=== PATIENT | female | born 1955 | race Caucasian/White ===

== ENCOUNTER 2020-09-21 10:11 | Inpatient (IN) ==
--- NOTE | 2020-09-21 10:36 | ERNOTE ---
Hip Pain HPI - Narrative Date of Service: 09/21/20 Narrative: Patient is a 62 to 65 years old female who presented complaining of right hip pain. Patient is wheelchair-bound for the last 4 years, and last evening at 930 she tried to sweep off cerea; from the floor and lost her balance and fell off her wheelchair and landed on her right hip. She use her phone and called her niece who came and helped her to the couch. Patient slept on the couch and has not been able to move by herself of it so this morning she called 911 to pick her up. She reports pain in the right hip with any movement. On arrival EMS said that she was saturating at 86 to 88% on room air so they put her on 2 L of oxygen. Patient reports she does not normally use oxygen. She is a smoker - General Time Seen by Provider: 09/21/20 10:24 Source: patient Exam Limitations: no limitations - History of Present Illness Timing/Duration: constant, yesterday Severity: moderate, severe Hip Pain Location: hip (R) Method of Injury/Prior Injury: fell Modifying Factors - (Improves): Reports: pain medication Modifying Factors - (Worsens): Reports: movement - Immun/Allergies/Home Medications Allergies/Adverse Reactions: Allergies Allergy/AdvReac Type Severity Reaction Status Date / Time No Known Allergies Allergy Unverified 09/21/20 10:26 Home Medications: Ambulatory Orders Medication Instructions Recorded Albuterol Sulfate [Ventolin Hfa] 1 puff INHALATION Q4H PRN 09/21/20 Atorvastatin Calcium [Lipitor] 80 mg PO HS 09/21/20 Enalapril Maleate 5 mg PO DAILY 09/21/20 Hydroxychloroquine Sulfate 200 mg PO DAILY 09/21/20 [Plaquenil] Naloxone HCl [Narcan] 4 mg NS ONCE PRN 09/21/20 Pregabalin [Lyrica] 150 mg PO BID 09/21/20 oxyCODONE HCL/ACETAMINOPHEN 2 ea PO TID PRN 09/21/20 [Percocet 10-325 mg Tablet] Pain Exam - Physical Exam General Appearance: Present: moderate distress Eyes, Ears, Nose, Throat Exam: Present: normal ENT inspection Neck Exam: Present: non-tender Cardiovascular/Respiratory: Present: regular rate, rhythm Gastrointestinal/Abdominal: Present: normal bowel sounds Back Exam: Present: normal inspection, no CVA tenderness Extremity Exam: Present: bony-point tenderness, pain with movement, other - right hip Neurologic: Present: interventional neuroradiologist II-XII nml as tested Skin Exam: Present: normal color ED Progress - PROGRESS/REASSESSMENT Condition: Improved Progress Note-Subjective: 09/21/20 11:10 - discussed case with Dr Mortensen, ortho, he will see patient on the floor, asked to admit to medicine 09/21/2020 11:[address] Gonzales 11:45 - Discussed case with Dr Gonzales, she accepted admission. - VITAL SIGNS Patient's Vital Signs:: I have reviewed the patient's vital signs. - RESULTS AND ORDERS Patient's Lab Results:: I have reviewed the patient's lab results. - X-Ray X-Ray #1 X-Ray Comments: NAME: MARA IVERSON : 1955 MR #: [id number] CC: Grace Arriaga MD; Thea Nelson MDLOC: ER ADM DATE: DIS DATE: X-RAY REPORT ~[id number] RAD/Chest Single View *~ Exam Date: 09/21/2020 10:54 Ordering Physician: Grace Arriaga MD History: Fall. Right hip pain. Right hip fracture. Technique: Single AP view of the chest obtained. 2 images utilized. Comparison: None. Findings: Heart size and vascularity appear within normal limits. There are coronary artery vascular stents. There are changes of underlying emphysema. There are no focal infiltrates or effusions identified on this single view. There are postsurgical changes lower visualized cervical spine. There are degenerative changes in the thoracic spine. IMPRESSION: EMPHYSEMA. NO ACUTE CARDIOPULMONARY DISEASE OTHERWISE IDENTIFIED. Electronically signed by Naseem Edmond M.D.. Naseem Edmond MD Dict: 09/21/20 1130 Typed: 09/21/20 1130/ 09/21/20 1131 X-Ray #2 X-Ray Comments: NAME: MARA IVERSON : 1955 MR #: [id number] CC: Grace Arriaga MD; Thea Nelson MDLOC: ER ADM DATE: DIS DATE: X-RAY REPORT ~[id number] RAD/Hip & Pelvis 2-3 Views RT *~ Exam Date: 09/21/2020 10:54 Ordering Physician: Grace Arriaga MD History: Fall. Pain post injury. Technique: 2 views of the right hip obtained. Single AP view of the pelvis obtained. Comparison: None. Findings: Both hips are normally located. There are postoperative changes in the pelvis. There are degenerative changes of both hips. There is a nondisplaced intertrochanteric fracture of the right hip. This may be incomplete. This is only well seen on the lateral view. No other fractures identified. IMPRESSION: NONDISPLACED RIGHT HIP INTERTROCHANTERIC FRACTURE. Electronically signed by Naseem Edmond M.D.. Naseem Edmond MD Dict: 09/21/20 1128 Typed: 09/21/20 1128/ 09/21/20 1130 Departure - Departure Clinical Impression: Intertrochanteric fracture of right femur, Hypoxia, Renal failure Disposition: Short Term Hospital Inpatient Condition: Fair
[2020-09-21 11:45] LABS: Hematocrit 47.7 % (37.0-47.0); Hemoglobin 15.2 gm/dL (12.5-16.0); Mean Cell Volume 95.4 fl (78-100); Mean Corpuscular Hemoglobin 30.4 pg (27-31); Mean Corpuscular Hgb Conc 31.9 g/dl (32-36); Mean Platelet Volume 10.4 fl (8-12.5); Neutrophil # 7.7 K/mm3 (1.3-6.0); Neutrophil % 83.3 % (42-75.0); Platelet Count 161 K/mm3 (150-450); Red Cell Distribution Width 16.5 % (11.5-14.0); White Blood Count 9.2 K/mm3 (4.0-10.5)
[2020-09-21 11:58] LABS: Albumin * 3.6 gm/dl (3.4-5.0); Anion Gap 14.4 mmol/L (6.8-13.8); BUN/Creatinine Ratio 24.8 (9.0-21.6); Bilirubin, Total 0.7 mg/dL (0.0-1.1); Carbon Dioxide 27.1 mmol/L (24-32.6); Potassium 4.5 mmol/L (3.4-4.6); Total Protein 7.4 gm/dL (6.2-8.2)
[2020-09-21 12:02] LABS: Urine Bilirubin Negative (NEGATIVE); Urine Blood Negative /ul (NEGATIVE); Urine Ketone Negative (NEGATIVE); Urine Nitrite Negative (NEGATIVE); Urine Protein Negative (NEGATIVE); Urine Specific Gravity 1.015 SP.GR. (1.005-1.010); Urine Urobilinogen Normal (NORMAL)
[2020-09-21 12:14] LABS: Urine Appearance Clear (CLEAR); Urine Bacteria None Seen; Urine Color Yellow; Urine RBC None Seen /hpf (0-5); Urine WBC None Seen /hpf (0-5)
--- NOTE | 2020-09-21 12:39 | HP ---
Chief Complaint - Chief Complaint Date of Service: 09/21/20 Time of Service: 12:15 Chief Complaint: Right hip pain History of Present Illness: 65-year-old female with a past medical history of COPD, hypertension, osteoporosis, lupus presents from home status post fall with right hip pain. Hip x-ray is positive for nondisplaced right hip Intertrochanteric fracture. Her GFR is low at 40. She is tachypneic and tachycardic with hypoxia in the high 80s and is requiring 2 to 4 L oxygen supplementation via nasal cannula. She received a dose of fentanyl on transit to the hospital. During my exam she is lethargic and minimally responsive to verbal questioning, she is more responsive to tactile stimuli. She denies pain or shortness of breath. Orthopedics has been consulted and she is being admitted for right hip fracture. Surgical history: Noncontributory Medical History (Last Updated 09/21/20 @ 17:04 by Marie Gonzales MD) COPD (chronic obstructive pulmonary disease) Family history non-contributory Hypertension Lupus Medical history non-contributory Osteoporosis Weakness Family History: Family History (Last Updated 09/21/20 @ 10:27 by Morena George RN) Other No pertinent family history No pertinent past surgical history Social History: (Last Reviewed 09/21/20 @ 10:27 by Mroena George RN) Tobacco: Smoking Status: Current every day smoker tobacco type: cigarettes Smoking cigarettes per day: 10 Alcohol: alcohol intake: never Substance Use: substance use type: does not use Review Of Systems (GEN) - Review of Systems Generalized/Overall Review: Absent: Fever Respiratory: Absent: Shortness of Breath Cardiac: Absent: Chest Pain Abdominal: Absent: Abdominal Pain Musculoskeletal: Present: Joint Pain - Right hip Misc: All systems neg except as marked Immunizations: IMMUNIZATION HX Immunizations Up to Date Yes History of Influenza Vaccine No Hx Pneumococcal Vaccination No Allergies/Adverse Reactions: Allergies Allergy/AdvReac Type Severity Reaction Status Date / Time No Known Allergies Allergy Unverified 09/21/20 10:26 Home Medications: HOME MEDICATIONS Albuterol Sulfate [Ventolin Hfa] 1 puff INHALATION Q4H PRN 09/21/20 [Last Taken Unknown] Atorvastatin Calcium [Lipitor] 80 mg PO HS 09/21/20 [Last Taken Unknown] Enalapril Maleate 5 mg PO DAILY 09/21/20 [Last Taken Unknown] Hydroxychloroquine Sulfate [Plaquenil] 200 mg PO DAILY 09/21/20 [Last Taken Unknown] Naloxone HCl [Narcan] 4 mg NS ONCE PRN 09/21/20 [Last Taken Unknown] Pregabalin [Lyrica] 150 mg PO BID 09/21/20 [Last Taken Unknown] oxyCODONE HCL/ACETAMINOPHEN [Percocet 10-325 mg Tablet] 2 ea PO TID PRN 09/21/20 [Last Taken Unknown] Exam - Exam Vital Signs: Vital Signs - Last Taken Temp 36.8 C 09/21/20 10:14 Pulse 105 H 09/21/20 11:58 Resp 25 H 09/21/20 11:58 BP 137/75 09/21/20 11:58 Pulse Ox 90 L 09/21/20 11:58 Constitutional: Present: No distress, Elderly, Looks Older than stated age ENT Exam: Present: hearing grossly normal, dry mucous membranes Eye Exam: bilateral eye: normal inspection, PERRL Neck: Present: non-tender, supple. Absent: lymphadenopathy (R), lymphadenopathy (L) Respiratory: Present: no accessory muscle use, rhonchi - Throughout all lung heart, No wheezing. Absent: crackles Cardiovascular/Chest: Present: normal peripheral pulses, no edema, no murmur, tachycardia Peripheral Pulses: dorsalis-pedis (R): 1+, dorsalis-pedis (L): 1+ Abdomen: Present: Normal bowel sounds, soft, nontender Extremity: Present: no pedal edema Skin Exam: Present: normal color, warm/dry Appearance: Present: appropriate appearance Eye contact: Present: cooperative Thoughts: Present: normal mood /affect Diagnostic Studies: Abnormal Lab Results 09/21/20 09/21/20 Range/Units 11:35 11:35 Hct 47.7 H (37.0-47.0) % MCHC 31.9 L (32-36) g/dl RDW 16.5 H (11.5-14.0) % Immature Gran # (Auto) 0.04 H (0.000-0.0310) K/mm3 Neutrophils % 83.3 H (42-75.0) % Lymphocytes % 9.8 L (20-51) % Neutrophils # 7.7 H (1.3-6.0) K/mm3 Lymphocytes # 0.90 L (1.5-3.5) k/mm3 Anion Gap 14.4 H (6.8-13.8) mmol/L BUN 35 H (3-23) mg/dL Creatinine 1.41 H (0.4-1.4) mg/dL Est GFR (Non-Af Amer) 40 L (60-130) mL/min BUN/Creatinine Ratio 24.8 H (9.0-21.6) Laboratory Results WBC 9.2 K/mm3 (4.0-10.5) 09/21/20 11:35 RBC 5.00 M/mm3 (4.2-5.4) 09/21/20 11:35 Hgb 15.2 gm/dL (12.5-16.0) 09/21/20 11:35 Hct 47.7 % (37.0-47.0) H 09/21/20 11:35 MCV 95.4 fl (78-100) 09/21/20 11:35 MCH 30.4 pg (27-31) 09/21/20 11:35 MCHC 31.9 g/dl (32-36) L 09/21/20 11:35 RDW 16.5 % (11.5-14.0) H 09/21/20 11:35 Plt Count 161 K/mm3 (150-450) 09/21/20 11:35 MPV 10.4 fl (8-12.5) 09/21/20 11:35 Immature Gran % (Auto) 0.40 % (0.001-0.429) 09/21/20 11:35 Immature Gran # (Auto) 0.04 K/mm3 (0.000-0.0310) H 09/21/20 11:35 Neutrophils % 83.3 % (42-75.0) H 09/21/20 11:35 Lymphocytes % 9.8 % (20-51) L 09/21/20 11:35 Monocytes % 4.6 % (0.0-9) 09/21/20 11:35 Eosinophils % 1.7 % (0.0-3.0) 09/21/20 11:35 Basophils % 0.2 % (0.0-1.0) 09/21/20 11:35 Nucleated RBC % 0.0 k/mm3 (0-1) 09/21/20 11:35 Neutrophils # 7.7 K/mm3 (1.3-6.0) H 09/21/20 11:35 Lymphocytes # 0.90 k/mm3 (1.5-3.5) L 09/21/20 11:35 Monocytes # 0.4 k/mm3 (0.0-1.0) 09/21/20 11:35 Eosinophils # 0.2 k/mm3 (0.0-0.7) 09/21/20 11:35 Absolute Basophils 0.0 k/mm3 (0.0-0.1) 09/21/20 11:35 Sodium 142 mmol/L (132-142) 09/21/20 11:35 Plasma Sodium 142 mmol/L (130-142) 09/21/20 11:35 Potassium 4.5 mmol/L (3.4-4.6) 09/21/20 11:35 Chloride 105 mmol/L (97-106) 09/21/20 11:35 Carbon Dioxide 27.1 mmol/L (24-32.6) 09/21/20 11:35 Anion Gap 14.4 mmol/L (6.8-13.8) H 09/21/20 11:35 BUN 35 mg/dL (3-23) H 09/21/20 11:35 Creatinine 1.41 mg/dL (0.4-1.4) H 09/21/20 11:35 Est GFR (Non-Af Amer) 40 mL/min (60-130) L 09/21/20 11:35 BUN/Creatinine Ratio 24.8 (9.0-21.6) H 09/21/20 11:35 Random Glucose 87 mg/dL (70-110) 09/21/20 11:35 Lactic Acid, Venous 1.4 mmol/L (0.4-2.0) 09/21/20 11:35 Calcium 9.0 mg/dL (7.9-10.9) 09/21/20 11:35 Calcium Adj for Albumin 9.0 mg/dL (8.4-10.2) 09/21/20 11:35 Total Bilirubin 0.7 mg/dL (0.0-1.1) 09/21/20 11:35 AST 34 U/L (0-48) 09/21/20 11:35 ALT 22 U/L (19-67) 09/21/20 11:35 Alkaline Phosphatase 135 U/L (50-170) 09/21/20 11:35 Creatine Kinase 116 U/L (0-259) 09/21/20 11:35 Total Protein 7.4 gm/dL (6.2-8.2) 09/21/20 11:35 Albumin 3.6 gm/dl (3.4-5.0) 09/21/20 11:35 Urine Color Yellow 09/21/20 11:54 Urine Appearance Clear (CLEAR) 09/21/20 11:54 Urine pH 6.0 pH (5.0-7.0) 09/21/20 11:54 Ur Specific [place] 1.015 SP.GR. (1.005-1.010) 09/21/20 11:54 Urine Protein Negative mg/dL (NEGATIVE) 09/21/20 11:54 Urine Glucose (UA) Negative mg/dL (NEGATIVE) 09/21/20 11:54 Urine Ketones Negative mg/dL (NEGATIVE) 09/21/20 11:54 Urine Blood Negative /ul (NEGATIVE) 09/21/20 11:54 Urine Nitrate Negative (NEGATIVE) 09/21/20 11:54 Urine Bilirubin Negative mg/dl (NEGATIVE) 09/21/20 11:54 Urine Urobilinogen Normal EU/dl (NORMAL) 09/21/20 11:54 Ur Leukocyte Esterase Negative /ul (NEGATIVE) 09/21/20 11:54 Urine RBC None seen /hpf (0-5) 09/21/20 11:54 Urine WBC None seen /hpf (0-5) 09/21/20 11:54 Ur Epithelial Cells 0-5 /hpf (0-5) 09/21/20 11:54 Urine Bacteria None seen (NONE) 09/21/20 11:54 Urine Culture Comments No culture indicated 09/21/20 11:54 SARS-CoV-2 (PCR) Not detected (NotDetected) 09/21/20 11:18 Assessment/Plan - Narrative Narrative: 65-year-old female with a past medical history of COPD, hypertension, osteoporos is, lupus presents from home status post fall with right hip pain. Hip x-ray is positive for nondisplaced right hip Intertrochanteric fracture. Her GFR is low at 40. She is tachypneic and tachycardic with hypoxia in the high 80s and is requiring 2 to 4 L oxygen supplementation via nasal cannula. She received a dose of fentanyl on transit to the hospital. During my exam she is lethargic and minimally responsive to verbal questioning, she is more responsive to tactile stimuli. She denies pain or shortness of breath. Orthopedics has been consulted and she is being admitted for right hip fracture. She is medically cleared for surgery. Plan #1 pain management #2 follow-up orthopedics consult #3 oxygen supplementation as needed #4 resume home medications for comorbidities - Assessment/Plan (1) COPD (chronic obstructive pulmonary disease) Problem: Acute (2) Hypoxia Problem: Acute (3) Intertrochanteric fracture of right femur Problem: Acute (4) Lupus Problem: Acute (5) Hypertension Problem: Acute (6) CKD (chronic kidney disease) stage 3, GFR 30-59 ml/min Problem: Acute
[2020-09-21] MEDS: MORPHINE SULFATE 2 MG/ML DISP.SYRIN IV PRN ×2 (13:58→20:40)
[2020-09-21] MEDS: METOPROLOL TARTRATE 25 MG TABLET PO SCH ×2 (16:05→20:47)
--- NOTE | 2020-09-21 16:24 | CONS ---
[facility] - General Date of Service: 09/21/20 Narrative: Patient reports that she had a ground-level fall earlier today. She states that she is only up for transfers from bed to wheelchair. She reports that this fall she had severe right hip pain and was unable to put any pressure on her right leg. She was brought in the emergency department and evaluated. She was found to have a essentially nondisplaced intertrochanteric right hip fracture. She is complaining of no other injuries. Source: patient - History of Present Illness Timing/Duration: 4-6 hours Allergies/Adverse Reactions: Allergies No Known Allergies Allergy (Unverified 09/21/20 10:26) Home Medications: Home Medications Medication Instructions Recorded Last Taken Albuterol Sulfate [Ventolin Hfa] 1 puff INHALATION Q4H PRN 09/21/20 Unknown Atorvastatin Calcium [Lipitor] 80 mg PO HS 09/21/20 Unknown Enalapril Maleate 5 mg PO DAILY 09/21/20 Unknown Hydroxychloroquine Sulfate 200 mg PO DAILY 09/21/20 Unknown [Plaquenil] Naloxone HCl [Narcan] 4 mg NS ONCE PRN 09/21/20 Unknown Pregabalin [Lyrica] 150 mg PO BID 09/21/20 Unknown oxyCODONE HCL/ACETAMINOPHEN 2 ea PO TID PRN 09/21/20 Unknown [Percocet 10-325 mg Tablet] Medications - Medications Current Medications: Current Medications Metoprolol Tartrate (Lopressor) 25 mg PO BID MICHAEL Stop: 10/21/20 16:01 Last Admin: 09/21/20 16:05 Dose: 25 mg Documented by: Morphine Sulfate (Morphine Sulfate) 1 mg IV Q2H PRN PRN Reason: Pain Stop: 10/21/20 13:50 Last Admin: 09/21/20 13:58 Dose: 1 mg Documented by: Physical Examination - Exam Narrative: Patient is lying in bed. She is a frail 65-year-old female. She does respond to questions appropriately. She has local tenderness with palpation in the right inguinal area. She is lying with her knees flexed and on her right side. Right leg logroll does produce right inguinal pain. She is not complaining the pain in her right knee or lower leg. X-rays reviewed show an essentially nondisplaced right intertrochanteric hip fracture. Vital Signs: Vital Signs - Last Taken Temp 37.5 C 09/21/20 13:05 Pulse 122 H 09/21/20 16:05 Resp 18 09/21/20 13:05 BP 130/72 09/21/20 16:05 Pulse Ox 99 09/21/20 13:05 O2 Oxygen Delivery Method Room Air - Results and Findings: Lab/Microbiology results last 24 hrs: Abnormal/Pending Laboratory Last 24 HRS 09/21/20 09/21/20 11:35 11:35 Hct 47.7 H MCHC 31.9 L RDW 16.5 H Immature Gran # (Auto) 0.04 H Neutrophils % 83.3 H Lymphocytes % 9.8 L Neutrophils # 7.7 H Lymphocytes # 0.90 L Anion Gap 14.4 H BUN 35 H Creatinine 1.41 H Est GFR (Non-Af Amer) 40 L BUN/Creatinine Ratio 24.8 H - Assessments/Findings (1) Intertrochanteric fracture of right femur Diagnosis(s): Mrs. Duran is a 65-year-old female with a essentially nondisplaced intertrochanteric right hip fracture. Recommendation is supple medullary internal fixation with InterTAN nail. Surgical risk discussed. We will have consents obtained. Pending medical evaluation preoperatively we plan to proceed with this tomorrow if there are no contraindications. Patient be n.p.o. at midnight tonight. Problem: Acute
[2020-09-21] MEDS ORDERED: ceFAZolin SODIUM 1 GM in DEXTROSE 5 % IN WATER 50 ML IV PRN ×2 (16:25)
[2020-09-21] MEDS: ALBUTEROL SULFATE 2.5 MG/0.5 ML VIAL.NEB IH PRN (19:04)
[2020-09-21] MEDS: ROSUVASTATIN CALCIUM 20 MG TABLET PO SCH (20:44)
[2020-09-21] MEDS: PREGABALIN 75 MG CAPSULE PO SCH (20:50)
[2020-09-22] MEDS: ALBUTEROL SULFATE 2.5 MG/0.5 ML VIAL.NEB IH PRN ×3 (01:49→18:18)
[2020-09-22] MEDS ORDERED: FUROSEMIDE 10 MG/ML VIAL IV ONE (03:08)
[2020-09-22] MEDS: MORPHINE SULFATE 2 MG/ML DISP.SYRIN IV PRN ×2 (03:28→11:18)
[2020-09-22 06:40] LABS: Hematocrit 47.4 % (37.0-47.0); Hemoglobin 14.8 gm/dL (12.5-16.0); Mean Cell Volume 95.2 fl (78-100); Mean Corpuscular Hemoglobin 29.7 pg (27-31); Mean Corpuscular Hgb Conc 31.2 g/dl (32-36); Mean Platelet Volume 10.6 fl (8-12.5); Neutrophil # 11.4 K/mm3 (1.3-6.0); Neutrophil % 82.2 % (42-75.0); Platelet Count 188 K/mm3 (150-450); Red Blood Count 4.98 M/mm3 (4.2-5.4); Red Cell Distribution Width 16.5 % (11.5-14.0); White Blood Count 13.8 K/mm3 (4.0-10.5)
[2020-09-22 06:51] LABS: Albumin * 3.3 gm/dl (3.4-5.0); Anion Gap 14.8 mmol/L (6.8-13.8); BUN/Creatinine Ratio 27.5 (9.0-21.6); Ca. Corrected For Albumin 9.2 mg/dL (8.4-10.2); Potassium 3.8 mmol/L (3.4-4.6); Total Protein 7.3 gm/dL (6.2-8.2)
--- NOTE | 2020-09-22 09:00 | ANES ---
Anesthesia Pre Procedure Eval Vitals/Labs: Last Vital Signs Temp 36.8 C 09/22/20 07:06 Pulse 104 H 09/22/20 07:06 Resp 15 09/22/20 07:06 BP 108/60 09/22/20 07:06 Pulse Ox 96 09/22/20 07:06 HOME MEDICATIONS Albuterol Sulfate [Ventolin Hfa] 1 puff INHALATION Q4H PRN 09/21/20 [Last Taken Unknown] Atorvastatin Calcium [Lipitor] 80 mg PO HS 09/21/20 [Last Taken Unknown] Enalapril Maleate 5 mg PO DAILY 09/21/20 [Last Taken Unknown] Hydroxychloroquine Sulfate [Plaquenil] 200 mg PO DAILY 09/21/20 [Last Taken Unknown] Naloxone HCl [Narcan] 4 mg NS ONCE PRN 09/21/20 [Last Taken Unknown] Pregabalin [Lyrica] 150 mg PO BID 09/21/20 [Last Taken Unknown] oxyCODONE HCL/ACETAMINOPHEN [Percocet 10-325 mg Tablet] 2 ea PO TID PRN 09/21/20 [Last Taken Unknown] Allergies/Adverse Reactions: Allergies Allergy/AdvReac Type Severity Reaction Status Date / Time No Known Allergies Allergy Unverified 09/21/20 10:26 - Planned Procedure Planned Procedure: R INTER NON DISPLACED HIP FRACTURE Medication List Reviewed:: Yes Allergies Verified: Yes Medical History (Last Reviewed 09/22/20 @ 08:59 by Naseem Beckham CRNA) COPD (chronic obstructive pulmonary disease) Family history non-contributory Hypertension Lupus Medical history non-contributory Osteoporosis Weakness Family History (Last Reviewed 09/22/20 @ 08:59 by Naseem Beckham CRNA) Other No pertinent family history No pertinent past surgical history - Family Anesthesia History Family History:: no untoward family reactions to anesthesia - Airway/Neck/Teeth Denture Type: Full upper, Full lower Neck Exam: limited range of motion Mallampatti Score: 2 Thyromental (T-M) distance: > 6 cm Mandibulo Hyoid distance: > 3 cm - Respiratory Respiratory History: COPD Respiratory Physical: decreased breath sounds Smoking Status: Current every day smoker Discussed smoking cessation including day of surgery: Yes Sleep Apnea currently treated: No Sleep Apnea by current assessment: No - Cardiovascular Cardiac History: hypertension, PVD Tolerate Activity: Poor Heart Sounds: S1 & S2, Regular - Gastrointestinal NPO since: mn - Anesthesia Assessment and Plan ASA Class: PS, III Anesthesia Type Plan: Spinal Planned difficult intubation/equipment available: No
[2020-09-22] MEDS: METOPROLOL TARTRATE 25 MG TABLET PO SCH ×2 (09:30→20:37)
[2020-09-22] MEDS ORDERED: ALBUTEROL SULFATE/IPRATROPIUM 3 ML NEBU IH SCH (09:45)
--- NOTE | 2020-09-22 11:49 | PREOP NOTE ---
Preoperative Progress Note - Preoperative Changes Changes to Preop Condition?: No Changes - Patient medical preop assessment done, plan IM fixation of fracture
--- NOTE | 2020-09-22 11:53 | PN ---
Subjective - Date and Time Seen Date: 09/22/20 Time: 09:34 Subjective Narrative: She denies chest pain, shortness of breath above her baseline, dizziness, or palpitations. Objective - Review of Systems Generalized/Overall Review: Denies: Fever Respiratory: Reports: Shortness of Breath. Denies: Cough Cardiac: Denies: Chest Pain Abdominal: Denies: Abdominal Pain Misc: All systems neg except as marked - Vitals Vitals: Last Vital Signs Temp 36.5 C 09/22/20 10:18 Pulse 91 09/22/20 10:18 Resp 24 H 09/22/20 10:18 BP 110/73 09/22/20 10:18 Pulse Ox 91 L 09/22/20 10:18 - Abnormal Lab Findings Abnormal Lab Findings: Abnormal Lab Results 09/21/20 09/22/20 09/22/20 Range/Units 11:35 06:32 06:32 WBC 13.8 H D (4.0-10.5) K/mm3 Hct 47.4 H (37.0-47.0) % MCHC 31.2 L (32-36) g/dl RDW 16.5 H (11.5-14.0) % Immature Gran % (Auto) 0.70 H (0.001-0.429) % Immature Gran # (Auto) 0.09 H (0.000-0.0310) K/mm3 Neutrophils % 82.2 H (42-75.0) % Lymphocytes % 8.6 L (20-51) % Neutrophils # 11.4 H (1.3-6.0) K/mm3 Lymphocytes # 1.19 L (1.5-3.5) k/mm3 Monocytes # 1.1 H (0.0-1.0) k/mm3 Anion Gap 14.4 H 14.8 H (6.8-13.8) mmol/L BUN 35 H 33 H (3-23) mg/dL Creatinine 1.41 H (0.4-1.4) mg/dL Est GFR (Non-Af Amer) 40 L 48 L (60-130) mL/min BUN/Creatinine Ratio 24.8 H 27.5 H (9.0-21.6) Albumin 3.3 L (3.4-5.0) gm/dl - Exam Constitutional: Present: Alert, Cooperative, No distress, Looks Older than stated age ENT Exam: Present: hearing grossly normal Neck: Present: non-tender, supple. Absent: lymphadenopathy (R), lymphadenopathy (L) Respiratory: Present: no respiratory distress, no accessory muscle use, rhonchi, No wheezing - Throughout all lung heart. Absent: crackles Cardiovascular/Chest: Present: regular rate, rhythm, no edema, no murmur Abdomen: Present: Normal bowel sounds, soft, nontender Extremity: Present: no pedal edema Skin Exam: Present: normal color, warm/dry Neurologic: Present: alert, normal mood/affect Appearance: Present: appropriate appearance, appropriate insight Eye contact: Present: cooperative Thoughts: Present: normal thought pattern, normal mood /affect Cauti Physician Documentation - Urinary Catheter Management Urethral ([place]) Date of Insertion: 09/21/20 Time of Insertion: 11:54 Assessment/Plan Plan Narrative: 65-year-old female with a past medical history of COPD, hypertension, osteoporosis, lupus presents from home status post fall with right hip pain. Hip x-ray is positive for nondisplaced right hip Intertrochanteric fracture. Her GFR is low at 40. She is tachypneic and tachycardic with hypoxia in the high 80s and is requiring 2 to 4 L oxygen supplementation via nasal cannula. She received a dose of fentanyl on transit to the hospital. During my exam she is lethargic and minimally responsive to verbal questioning, she is more responsive to tactile stimuli. She denies pain or shortness of breath. Orthopedics has been consulted and she is being admitted for right hip fracture. Her oxygen saturation dropped overnight and she was started on 4 L via oxy-mask. Repeat chest x-ray did not show any significant changes. She is not an optimal surgical candidate due to her COPD. However, in light of her hip fracture I will clear her medically for the procedure. She denies chest pain, palpitations, dizziness or shortness of breath above her baseline. I believe her COPD is at her baseline. Plan #1 pain management #2 she is scheduled to go to the operating room today #3 oxygen supplementation as needed #4 resume home medications for comorbidities - Problems/Diagnosis (1) COPD (chronic obstructive pulmonary disease) Problem: Acute (2) Hypoxia Problem: Acute (3) Intertrochanteric fracture of right femur Problem: Acute (4) Lupus Problem: Acute (5) Hypertension Problem: Acute (6) CKD (chronic kidney disease) stage 3, GFR 30-59 ml/min Problem: Acute
[2020-09-22] MEDS ORDERED: MIDAZOLAM HCL/PF 5 MG/ML VIAL ONE (12:06)
[2020-09-22] MEDS ORDERED: PROPOFOL VIAL IV ONE (12:06)
[2020-09-22] MEDS ORDERED: BUPIVACAINE HCL/PF 10 ML VIAL ONE (12:06)
[2020-09-22] MEDS ORDERED: LIDOCAINE HCL 20 ML VIAL ONE (12:06)
[2020-09-22] MEDS ORDERED: NORMAL SALINE 20 ML VIAL ONE (12:07)
--- NOTE | 2020-09-22 13:20 | OR ---
Operative Report - Dictated Report Narrative: Date: 09/22/2020 Surgeon: Demond Womack M.D. Occ Med Physician: Carlos Mortensen PA-C (provided an essential set of skilled educated handset assisted with transfer, positioning, prepping, draping, placement of instruments, insertion of implants, irrigation, closure wounds, and placement of dressings all which could not be performed by the available surgical crew) Preoperative diagnosis: Right closed intertrochanteric femur fracture Postoperative diagnosis: Right closed intertrochanteric femur fracture Operations and procedures: 1. Closed reduction, cephalo-medullary fixation right intertrochanteric femur fracture 2. Intraoperative interpretation of radiographs Anesthesia: Spinal plus general Specimens: None Estimated blood loss: 25 milliliters Retained implants: [employer] Trigen InterTAN 130 degree size 10 mm by 18 centimeter nail with 90 millimeter lag screw and 85 millimeter compression screw, with distal locking screw Complications: None Indications for procedure: Mrs. Duran is a 65-year-old female who injured the right leg after ground- level fall. They were admitted to the hospital after being evaluated in the emergency department. Once the medical provider felt that they were stable for surgical treatment, the risks and benefits alternatives were discussed. The risks of , blood clots, bleeding, infection, nerve/tendon/blood vessel injury, malunion, nonunion, failure of implants, painful implants, arthrosis, and need for additional procedures were discussed. The extremity was marked and consent was obtained on the floor. Procedure: After marking the operative extremity on the floor, the patient was taken to the operating room. A timeout was performed. IV antibiotics consisting of Ancef were administered. A spinal followed by general anesthetic was induced by anesthesia, and the patient was then placed onto a fracture table with a well- padded perineal post. The nonoperative leg was placed in a well-padded traction boot in slight extension without any traction with an SCD on the leg. The operative leg was placed in a well-padded traction boot. Longitudinal traction, internal rotation, and flexion were utilized in order to reduce the fracture. Preliminary images were attained utilizing C-arm in both the AP and lateral views. This confirmed that we had obtained adequate visualization of the fracture as well as reduction. Next the hip was then prepped and draped in a standard sterile fashion. Next the guidewire was placed percutaneously proximal to the greater trochanter to anahy a starting point at the tip of the greater trochanter centered on the lateral view. This was passed down to the level below the lesser trochanter. A scalpel was utilized in order to dissect down to the greater trochanter in order to place the soft tissue protector down to bone. The entry drill was then placed down the proximal femur to the level of the lesser trochanter. The proper size nail was then selected and impacted into place. The outrigger was utilized in order to confirm the appropriate depth of the nail. Using the alignment device on the outrigger, an incision was made over the lateral femur. Sharp dissection was carried through the iliotibial band down to the proximal femur. The guidewire was placed into the femoral head in a center- center position on AP and lateral views. The tip-apex distance of less than 25 mm combined was obtained. Once we felt that we had placed a guidewire in the appropriate position, it was measured. Next the compression screw site was drilled through the lateral femoral cortex. This was then drilled down to the appropriate depth, again confirming that we are within the confines the bone. The derotational bar was then placed and the lag screw was drilled. The lag screw was then secured in place seating fully ensuring that we were within the confines of the bone. The compression screw was then inserted allowing for compression while releasing the traction on the leg. Using C-arm this was visualized to allow for compression across the fracture site. Once is felt that we had adequately stabilized the intertrochanteric fracture, the distal interlocking screw was placed in a dynamic position. It was confirmed to be the appropriate length and within the nail on both AP and lateral views. The nail was secured allowing for controlled compression and the outrigger was removed. The wounds were then thoroughly irrigated. Final images were obtained . The hip was placed through range of motion and showed no crepitance. The deep fascia was closed with 0 Vicryl, the subcutaneous tissue with 3-0 Vicryl, and the skin was closed with ludmila. Sterile dressings of Xeroform, 4 x 4, and tape were applied. All sponge, sharp, and instrument counts were correct prior to closing the wounds. The patient was then awoken and transferred to the postanesthesia care unit in stable condition.
[2020-09-22] MEDS ORDERED: NEOSTIGMINE METHYLSULFATE 1 MG/ML VIAL ONE (14:19)
[2020-09-22] MEDS ORDERED: GLYCOPYRROLATE 0.2 MG/ML VIAL ONE (14:20)
[2020-09-22] MEDS: ALBUTEROL SULFATE/IPRATROPIUM 3 ML NEBU IH SCH ×2 (15:05→18:18)
--- NOTE | 2020-09-22 15:08 | ANES ---
Post Anesthesia Discharge - Transfer of Care Transfer of Care handoff given to nurse: Yes - Anesthesia Post Op Note Anesthesia Post Op Note: Pt. left intubated postop to assist with ventilation. Planned transfer. Spoke with DR. Ling in [place]. He requested that we attempt extubation. Dr. Gonzales made aware. Pt. extubated with Resp rate of 22 and tidal volumes ranging from 250-300. Placed on 10L per face mask.
--- NOTE | 2020-09-22 15:09 | ANES ---
Post Anesthesia Assessment - Vital Signs Vitals: Last Vital Signs Temp 36.6 C 09/22/20 13:30 Pulse 87 09/22/20 14:48 Resp 16 09/22/20 14:48 BP 115/64 09/22/20 14:48 Pulse Ox 100 09/22/20 14:48 Airway Patency: Normal - Mental Status Level Of Consciousness: Drowsy - Pain Level Pain Score: 0 - N/V Assessment Nausea/Vomiting Presence: None Dehydration:: No
[2020-09-22] MEDS: ENALAPRIL MALEATE 5 MG TABLET PO SCH (15:47)
[2020-09-22] MEDS: HYDROXYCHLOROQUINE SULFATE 200 MG TABLET PO SCH (15:47)
[2020-09-22] MEDS: PREGABALIN 75 MG CAPSULE PO SCH ×2 (15:47→20:35)
[2020-09-22] MEDS: ceFAZolin SODIUM 1 GM in DEXTROSE 5 % IN WATER 100 ML IV SCH ×4 (17:45→23:22)
[2020-09-22] MEDS: NICOTINE 14 MG PATC TD SCH (17:45)
[2020-09-22] MEDS: oxyCODONE HCL/ACETAMINOPHEN 1 TAB TABLET PO PRN (19:03)
[2020-09-22] MEDS: ROSUVASTATIN CALCIUM 20 MG TABLET PO SCH (20:35)
[2020-09-23] MEDS: ALBUTEROL SULFATE/IPRATROPIUM 3 ML NEBU IH SCH ×4 (00:10→18:35)
[2020-09-23] MEDS: oxyCODONE HCL/ACETAMINOPHEN 1 TAB TABLET PO PRN ×4 (02:47→19:15)
[2020-09-23] MEDS: ceFAZolin SODIUM 1 GM in DEXTROSE 5 % IN WATER 100 ML IV SCH ×2 (04:32)
[2020-09-23 06:32] LABS: Hematocrit 40.5 % (37.0-47.0); Mean Cell Volume 95.1 fl (78-100); Mean Corpuscular Hemoglobin 30.5 pg (27-31); Mean Corpuscular Hgb Conc 32.1 g/dl (32-36); Mean Platelet Volume 10.6 fl (8-12.5); Neutrophil # 7.6 K/mm3 (1.3-6.0); Neutrophil % 76.5 % (42-75.0); Platelet Count 146 K/mm3 (150-450); Red Blood Count 4.26 M/mm3 (4.2-5.4); Red Cell Distribution Width 16.4 % (11.5-14.0)
[2020-09-23 06:43] LABS: Anion Gap 11.9 mmol/L (6.8-13.8); BUN/Creatinine Ratio 25.7 (9.0-21.6); Calcium * 8.6 mg/dL (7.9-10.9); Carbon Dioxide 25.9 mmol/L (24-32.6); Estimated Creat Clear 40.6; Potassium 3.8 mmol/L (3.4-4.6)
[2020-09-23] MEDS: PREGABALIN 75 MG CAPSULE PO SCH ×2 (08:22→20:14)
[2020-09-23] MEDS: ENALAPRIL MALEATE 5 MG TABLET PO SCH (08:29)
[2020-09-23] MEDS: HYDROXYCHLOROQUINE SULFATE 200 MG TABLET PO SCH (08:30)
[2020-09-23] MEDS ORDERED: NORMAL SALINE 500 ML IV ONE (08:57)
[2020-09-23] MEDS ORDERED: NORMAL SALINE 500 ML IV PRN (09:06)
[2020-09-23] MEDS: METOPROLOL TARTRATE 25 MG TABLET PO SCH ×2 (09:11→20:15)
[2020-09-23] MEDS: RIVAROXABAN 20 MG TABLET PO SCH (11:01)
--- NOTE | 2020-09-23 11:08 | PN ---
Subjective - Date and Time Seen Date: 09/23/20 Time: 11:06 Subjective Narrative: Subjective: Reports no concerns. Was able to get to the chair with therapy. Pain is well-controlled. Voiding without any complications. Tolerating by mouth intake. Denies any nausea or vomiting. Denies calf pain. Slept well. Physical exam: Alert and oriented Right lower extremity: Palpable dorsalis pedis pulse. Sensation grossly intact to light touch. Dressings clean and dry. Able to flex and extend ankle and toes. No excessive drainage. Calf and thigh are soft and nontender. Assessment: Postop day 1 status post right hip cephalomedullary fixation. Plan: Continue with physical and occupational therapy weightbearing as tolerated. Continue with anticoagulation for 6 weeks. 24 hours postoperative prophylactic antibiotics. Pain control with goal to rely on oral medications. Continue bowel regimen. Will need 6 weeks with walker or assistive device to protect joint while ambulating during the recovery process. Okay to transfer at any point. I would like to see her back in 2 to 3 weeks. Keep the wound dry. Continue compression stocking on the surgical leg. Objective - Vitals Vitals: Last Vital Signs Temp 36.8 C 09/23/20 10:14 Pulse 105 H 09/23/20 10:14 Resp 20 09/23/20 10:14 BP 96/59 09/23/20 10:14 Pulse Ox 94 09/23/20 10:14 - Abnormal Lab Findings Abnormal Lab Findings: Abnormal Lab Results 09/23/20 09/23/20 Range/Units 06:20 06:20 RDW 16.4 H (11.5-14.0) % Plt Count 146 L (150-450) K/mm3 Immature Gran % (Auto) 0.60 H (0.001-0.429) % Immature Gran # (Auto) 0.06 H (0.000-0.0310) K/mm3 Neutrophils % 76.5 H (42-75.0) % Lymphocytes % 11.4 L (20-51) % Monocytes % 10.4 H (0.0-9) % Neutrophils # 7.6 H (1.3-6.0) K/mm3 Lymphocytes # 1.14 L (1.5-3.5) k/mm3 BUN 26 H (3-23) mg/dL Est GFR (Non-Af Amer) 59 L D (60-130) mL/min BUN/Creatinine Ratio 25.7 H (9.0-21.6) Random Glucose 140 H D (70-110) mg/dL Cauti Physician Documentation - Urinary Catheter Management Urethral (Torres) Date of Insertion: 09/21/20 Time of Insertion: 11:54 Assessment/Plan - Problems/Diagnosis (1) Intertrochanteric fracture of right femur Problem: Acute Qualifiers: Encounter type: subsequent encounter Fracture type: closed Fracture alignment: nondisplaced Fracture healing: with routine healing Qualified Code(s): S72.144D - Nondisplaced intertrochanteric fracture of right femur, subsequent encounter for closed fracture with routine healing
--- NOTE | 2020-09-23 12:20 | PN ---
Subjective - Date and Time Seen Date: 09/23/20 Time: 12:13 Subjective Narrative: My pain is controlled. Objective Objective Narrative: 65-year-old female status post right hip intertrochanteric fracture repair postop day #1 was evaluated at bedside and was found to be afebrile and in no acute distress. Patient reports adequate control of her pain at the moment and appears to be resting comfortable. She underwent a successful surgery yesterday and is recuperating without any major issues. Patient was evaluated by the orthopedic surgeon this morning who reports adequate recuperation but recommends continuing physical therapy, he also ordered for her to follow-up with him within the next 2 weeks. Patient has been undergoing postop PT and still has issues with her transfers and ambulation that needs to be addressed, discharge planning to her home with ongoing PT is underway. Postop labs demonstrate adequate hemoglobin levels and there were no concerning findings on this morning's results. We will reevaluate her tomorrow morning to see if she is ready to go. - Review of Systems Generalized/Overall Review: Reports: No Symptoms Reported EENTM: Reports: No Symptoms Reported Respiratory: Reports: No Symptoms Reported Cardiac: Reports: No Symptoms Reported Abdominal: Reports: No Symptoms Reported Genitourinary Symptoms: Reports: No Symptoms Reported Musculoskeletal Complaints: Reports: Joint Pain - Right hip fracture Neurological: Reports: No Symptoms Reported Skin: Reports: No Symptoms Reported Endocrine: Reports: No Symptoms Reported - Vitals Vitals: Last Vital Signs Temp 36.8 C 09/23/20 10:14 Pulse 105 H 09/23/20 10:14 Resp 20 09/23/20 10:14 BP 96/59 09/23/20 10:14 Pulse Ox 94 09/23/20 10:14 - Abnormal Lab Findings Abnormal Lab Findings: Abnormal Lab Results 09/23/20 09/23/20 Range/Units 06:20 06:20 RDW 16.4 H (11.5-14.0) % Plt Count 146 L (150-450) K/mm3 Immature Gran % (Auto) 0.60 H (0.001-0.429) % Immature Gran # (Auto) 0.06 H (0.000-0.0310) K/mm3 Neutrophils % 76.5 H (42-75.0) % Lymphocytes % 11.4 L (20-51) % Monocytes % 10.4 H (0.0-9) % Neutrophils # 7.6 H (1.3-6.0) K/mm3 Lymphocytes # 1.14 L (1.5-3.5) k/mm3 BUN 26 H (3-23) mg/dL Est GFR (Non-Af Amer) 59 L D (60-130) mL/min BUN/Creatinine Ratio 25.7 H (9.0-21.6) Random Glucose 140 H D (70-110) mg/dL - Exam Constitutional: Present: Alert, Oriented x3, Cooperative, Well developed, Well nourished, No distress, Elderly, Thin and frail ENT Exam: Present: normal ENT inspection, hearing grossly normal Neck: Present: non-tender, full range of motion, supple, normal inspection, trachea midline Breasts: Present: Exam deferred, Nontender Respiratory: Present: chest non-tender, lungs clear, normal breath sounds, no respiratory distress, no accessory muscle use Cardiovascular/Chest: Present: normal peripheral pulses, regular rate, rhythm, no chest tenderness, no edema, no gallop, no JVD, no murmur, no rub Abdomen: Present: Normal bowel sounds, soft, nontender, nondistended, no rebound tenderness, no hepatospenomegaly, no masses /Rectal: Present: Exam deferred Extremity: Present: no pedal edema, no calf tenderness, normal capillary refill, pelvis stable, other - Right hip covered by dry clean dressings, no evidence of bleeding Skin Exam: Present: normal color, warm/dry, no cyanosis Lymphatic: Present: no adenopathy Neurologic: Present: proofer apprentice II-XII nml as tested, no motor/sensory deficits, alert, normal mood/affect, oriented x 3 Appearance: Present: appropriate appearance, appropriate insight, neat, no memory impairment Eye contact: Present: cooperative, good eye contact, normal speech Thoughts: Present: normal thought pattern, no apparent hallucination Cauti Physician Documentation - Urinary Catheter Management Urethral (Torres) Date of Insertion: 09/21/20 Time of Insertion: 11:54 Assessment/Plan Plan Narrative: We will keep patient an additional day to continue physical therapy and for close monitoring. - Problems/Diagnosis (1) Intertrochanteric fracture of right femur Problem: Acute Qualifiers: Encounter type: subsequent encounter Fracture type: closed Fracture alignment: nondisplaced Fracture healing: with routine healing Qualified Code(s): S72.144D - Nondisplaced intertrochanteric fracture of right femur, subsequent encounter for closed fracture with routine healing (2) COPD (chronic obstructive pulmonary disease) Problem: Acute (3) Lupus Problem: Acute (4) CKD (chronic kidney disease) stage 3, GFR 30-59 ml/min Problem: Acute (5) Status post-operative repair of closed fracture of right hip Problem: Acute
[2020-09-23] MEDS: NICOTINE 14 MG PATC TD SCH (16:33)
[2020-09-23] MEDS ORDERED: TAMSULOSIN HCL 0.4 MG CAP.SR.24H PO ONE (20:04)
[2020-09-23] MEDS: ROSUVASTATIN CALCIUM 20 MG TABLET PO SCH (20:15)
[2020-09-24] MEDS: ALBUTEROL SULFATE/IPRATROPIUM 3 ML NEBU IH SCH ×4 (00:12→18:48)
[2020-09-24] MEDS: oxyCODONE HCL/ACETAMINOPHEN 1 TAB TABLET PO PRN ×4 (03:28→19:44)
[2020-09-24 06:22] LABS: Hematocrit 35.2 % (37.0-47.0); Hemoglobin 11.4 gm/dL (12.5-16.0); Mean Cell Volume 94.9 fl (78-100); Mean Corpuscular Hemoglobin 30.7 pg (27-31); Mean Corpuscular Hgb Conc 32.4 g/dl (32-36); Mean Platelet Volume 10.9 fl (8-12.5); Neutrophil # 5.2 K/mm3 (1.3-6.0); Platelet Count 140 K/mm3 (150-450); Red Blood Count 3.71 M/mm3 (4.2-5.4); Red Cell Distribution Width 16.3 % (11.5-14.0); White Blood Count 7.3 K/mm3 (4.0-10.5)
[2020-09-24 06:27] LABS: Anion Gap 10.5 mmol/L (6.8-13.8); BUN/Creatinine Ratio 20.4 (9.0-21.6); Calcium * 8.1 mg/dL (7.9-10.9); Carbon Dioxide 25.4 mmol/L (24-32.6); Estimated Creat Clear 41.9; Potassium 3.9 mmol/L (3.4-4.6)
[2020-09-24] MEDS: PREGABALIN 75 MG CAPSULE PO SCH ×2 (10:02→20:27)
[2020-09-24] MEDS: HYDROXYCHLOROQUINE SULFATE 200 MG TABLET PO SCH (10:03)
[2020-09-24] MEDS: RIVAROXABAN 20 MG TABLET PO SCH (10:03)
[2020-09-24] MEDS: METOPROLOL TARTRATE 25 MG TABLET PO SCH ×2 (10:06→20:27)
[2020-09-24] MEDS: ENALAPRIL MALEATE 5 MG TABLET PO SCH (10:07)
--- NOTE | 2020-09-24 11:14 | PN ---
Subjective - Date and Time Seen Date: 09/24/20 Time: 11:09 Subjective Narrative: My pain is controlled but I need more physical therapy. Objective Objective Narrative: 65-year-old female status post right hip intertrochanteric fracture repair postop day #2 was evaluated at bedside was found to be afebrile and in no acute distress. Patient is recuperating from her surgery without any issues. She is currently undergoing intrahospital physical therapy as ordered by the orthopedic surgeon. She reports adequate control of her pain but feels that she would benefit with additional intrahospital physical therapy to address her ambulation and weightbearing. Therefore we will keep the patient additional day to continue working with physical therapy. Her only issue at the moment is difficulty urinating which started since her Torres catheter was removed. The patient was cathed which released some of the urine but she continues to have difficulty. We will order Flomax to be given to her daily in order to assist with this and monitor to see if catheterizing her again is necessary. - Review of Systems Generalized/Overall Review: Reports: No Symptoms Reported EENTM: Reports: No Symptoms Reported Respiratory: Reports: No Symptoms Reported Cardiac: Reports: No Symptoms Reported Abdominal: Reports: No Symptoms Reported Genitourinary Symptoms: Reports: No Symptoms Reported Musculoskeletal Complaints: Reports: Joint Pain Neurological: Reports: No Symptoms Reported Skin: Reports: No Symptoms Reported Endocrine: Reports: No Symptoms Reported - Vitals Vitals: Last Vital Signs Temp 36.4 C 09/24/20 07:10 Pulse 105 H 09/24/20 10:06 Resp 16 09/24/20 07:10 BP 109/80 09/24/20 10:06 Pulse Ox 93 09/24/20 08:20 - Abnormal Lab Findings Abnormal Lab Findings: Abnormal Lab Results 09/24/20 09/24/20 Range/Units 06:10 06:10 RBC 3.71 L (4.2-5.4) M/mm3 Hgb 11.4 L (12.5-16.0) gm/dL Hct 35.2 L (37.0-47.0) % RDW 16.3 H (11.5-14.0) % Plt Count 140 L (150-450) K/mm3 Immature Gran % (Auto) 0.60 H (0.001-0.429) % Immature Gran # (Auto) 0.04 H (0.000-0.0310) K/mm3 Lymphocytes % 12.1 L (20-51) % Monocytes % 12.0 H (0.0-9) % Eosinophils % 3.2 H (0.0-3.0) % Lymphocytes # 0.88 L (1.5-3.5) k/mm3 Random Glucose 126 H (70-110) mg/dL - Exam Constitutional: Present: Alert, Oriented x3, Cooperative, Well developed, Well nourished, No distress ENT Exam: Present: normal ENT inspection, hearing grossly normal Neck: Present: non-tender, full range of motion, supple, normal inspection, trachea midline Breasts: Present: Exam deferred, Nontender Respiratory: Present: chest non-tender, lungs clear, normal breath sounds, no respiratory distress, no accessory muscle use Cardiovascular/Chest: Present: normal peripheral pulses, no chest tenderness, no edema, no gallop, no JVD, no murmur, no rub Abdomen: Present: Normal bowel sounds, soft, nontender, nondistended, no rebound tenderness, no hepatospenomegaly, no masses /Rectal: Present: Exam deferred Extremity: Present: normal range of motion, non-tender, normal inspection, no pedal edema, no calf tenderness, normal capillary refill, pelvis stable Skin Exam: Present: normal color, warm/dry, no cyanosis Lymphatic: Present: no adenopathy Neurologic: Present: gardener II-XII nml as tested, no motor/sensory deficits, alert, normal mood/affect, oriented x 3 Appearance: Present: appropriate appearance, appropriate insight, neat, no memory impairment Eye contact: Present: cooperative, good eye contact, normal speech Thoughts: Present: normal thought pattern Cauti Physician Documentation - Urinary Catheter Management Urethral (Torres) Urethral Indwelling: No Date of Insertion: 09/21/20 Time of Insertion: 11:54 Date of Removal: 09/23/20 Time of Removal: 13:02 Assessment/Plan Plan Narrative: We will administer Flomax to assist the patient's urination and continue to monitor closely. She will continue with physical therapy while here in the hospital but the plan is to discharge her with additional therapy at home. Patient is currently on Xarelto which is adequate coverage for her postop period, so we will not make any changes. - Problems/Diagnosis (1) Intertrochanteric fracture of right femur Problem: Acute Qualifiers: Encounter type: subsequent encounter Fracture type: closed Fracture alignment: nondisplaced Fracture healing: with routine healing Qualified Code(s): S72.144D - Nondisplaced intertrochanteric fracture of right femur, subsequent encounter for closed fracture with routine healing (2) COPD (chronic obstructive pulmonary disease) Problem: Chronic (3) Lupus Problem: Acute (4) CKD (chronic kidney disease) stage 3, GFR 30-59 ml/min Problem: Chronic (5) Status post-operative repair of closed fracture of right hip Problem: Acute
[2020-09-24] MEDS ORDERED: TAMSULOSIN HCL 0.4 MG CAP.SR.24H PO SCH (18:00)
[2020-09-24] MEDS: NICOTINE 14 MG PATC TD SCH (18:36)
[2020-09-24] MEDS: ROSUVASTATIN CALCIUM 20 MG TABLET PO SCH (20:26)
[2020-09-25] MEDS: ALBUTEROL SULFATE/IPRATROPIUM 3 ML NEBU IH SCH ×3 (00:29→13:35)
[2020-09-25] MEDS: oxyCODONE HCL/ACETAMINOPHEN 1 TAB TABLET PO PRN ×3 (01:27→13:36)
[2020-09-25] MEDS: ENALAPRIL MALEATE 5 MG TABLET PO SCH (09:04)
[2020-09-25] MEDS: PREGABALIN 75 MG CAPSULE PO SCH (09:06)
[2020-09-25] MEDS: RIVAROXABAN 20 MG TABLET PO SCH (09:06)
[2020-09-25] MEDS: METOPROLOL TARTRATE 25 MG TABLET PO SCH (09:07)
[2020-09-25] MEDS: HYDROXYCHLOROQUINE SULFATE 200 MG TABLET PO SCH (09:07)
--- NOTE | 2020-09-25 12:38 | DS ---
(1) COPD (chronic obstructive pulmonary disease) Problem: Chronic (2) Hypoxia Problem: Acute (3) Intertrochanteric fracture of right femur Problem: Acute Qualifiers: Encounter type: subsequent encounter Fracture type: closed Fracture alignment: nondisplaced Fracture healing: with routine healing Qualified Code(s): S72.144D - Nondisplaced intertrochanteric fracture of right femur, subsequent encounter for closed fracture with routine healing (4) Lupus Problem: Acute (5) Hypertension Problem: Acute (6) CKD (chronic kidney disease) stage 3, GFR 30-59 ml/min Problem: Chronic Hospital Course: 65-year-old female with a past medical history of COPD, hypertension, osteoporosis, lupus presents from home status post fall with right hip pain. Hip x-ray is positive for nondisplaced right hip Intertrochanteric fracture. Her GFR is low at 40. She is tachypneic and tachycardic with hypoxia in the high 80s and is requiring 2 to 4 L oxygen supplementation via nasal cannula. She received a dose of fentanyl on transit to the hospital. During my exam she is lethargic and minimally responsive to verbal questioning, she is more responsive to tactile stimuli. She denies pain or shortness of breath. Orthopedics has been consulted and she is being admitted for right hip fracture. Her oxygen saturation dropped overnight and she was started on 4 L via oxy-mask. Repeat chest x-ray did not show any significant changes. She is not an optimal surgical candidate due to her severe COPD. However, in light of her hip fracture I will clear her medically for the procedure. She denies chest pain, palpitations, dizziness or shortness of breath above her baseline. I believe her COPD is at her baseline. Patient underwent a right hip cephalomedullary fixation and required intubation during the procedure. Status post the procedure I received a call stating that anesthesia did not feel she would do well with extubation and they wanted the patient transferred to a higher level of care for management of the ventilator. We started working on transferring the patient and when I spoke with the car electronics installer at [facility] he would not accept the patient if we had not had a failed extubation. I transferred the car electronics installer to the anesthesia because the car electronics installer required more details and I had at the time. The car electronics installer had anesthesia extubate the patient and observe to see if she would need to be reintubated. The patient did okay on 10 L of oxygen. After monitoring her in the OR she was transferred to the inpatient and her oxygen requirements continue to decrease. She remained stable for the remainder of the hospitalization and is currently back at her baseline oxygenation which is 88% without oxygen supplementation. Kaila Druan is homebound due to her right hip fracture, she is status post right hip cephalomedullary fixation on September 22, 2020. The need for senior living is for wound care, monitoring of healing, diagnosis management education, medication management, surgery follow-up. The need for physical therapy is for strengthening, endurance, mobility issues, ADL teaching to be safe, range of motion, surgery follow-up. She will need to continue Xarelto for a total of 6 weeks until October 20, 2020. She will follow-up with orthopedics in the next 2 weeks Procedures Performed: see notes below List Procedures: right hip cephalomedullary fixation Results and Findings: Lab Pending Results 09/21/20 11:18: SARS-CoV-2 (PCR) Not detected 09/21/20 11:35: WBC 9.2, RBC 5.00, Hgb 15.2, Hct 47.7 H, MCV 95.4, MCH 30.4, MCHC 31.9 L, RDW 16.5 H, Plt Count 161, MPV 10.4, Immature Gran % (Auto) 0.40, Immature Gran # (Auto) 0.04 H, Neutrophils % 83.3 H, Lymphocytes % 9.8 L, Monocytes % 4.6, Eosinophils % 1.7, Basophils % 0.2, Nucleated RBC % 0.0, Neutrophils # 7.7 H, Lymphocytes # 0.90 L, Monocytes # 0.4, Eosinophils # 0.2, Absolute Basophils 0.0 09/21/20 11:35: Sodium 142, Plasma Sodium 142, Potassium 4.5, Chloride 105, Carbon Dioxide 27.1, Anion Gap 14.4 H, BUN 35 H, Creatinine 1.41 H, Est GFR (Non-Af Amer) 40 L, BUN/Creatinine Ratio 24.8 H, Random Glucose 87, Calcium 9.0, Calcium Adj for Albumin 9.0, Total Bilirubin 0.7, AST 34, ALT 22, Alkaline Phosphatase 135, Creatine Kinase 116, Total Protein 7.4, Albumin 3.6 09/21/20 11:35: Lactic Acid, Venous 1.4 09/21/20 11:54: Urine Color Yellow, Urine Appearance Clear, Urine pH 6.0, Ur Specific [place] 1.015, Urine Protein Negative, Urine Glucose (UA) Negative, Urine Ketones Negative, Urine Blood Negative, Urine Nitrate Negative, Urine Bilirubin Negative, Urine Urobilinogen Normal, Ur Leukocyte Esterase Negative, Urine RBC None seen, Urine WBC None seen, Ur Epithelial Cells 0-5, Urine Bacteria None seen, Urine Culture Comments No culture indicated 09/22/20 06:32: WBC 13.8 H D, RBC 4.98, Hgb 14.8, Hct 47.4 H, MCV 95.2, MCH 29.7, MCHC 31.2 L, RDW 16.5 H, Plt Count 188, MPV 10.6, Immature Gran % (Auto) 0.70 H, Immature Gran # (Auto) 0.09 H, Neutrophils % 82.2 H, Lymphocytes % 8.6 L, Monocytes % 8.0, Eosinophils % 0.2, Basophils % 0.3, Nucleated RBC % 0.0, Neutrophils # 11.4 H, Lymphocytes # 1.19 L, Monocytes # 1.1 H, Eosinophils # 0.0, Absolute Basophils 0.0 09/22/20 06:32: Sodium 139, Plasma Sodium 139, Potassium 3.8, Chloride 104, Carbon Dioxide 24.0, Anion Gap 14.8 H, BUN 33 H, Creatinine 1.20, Est GFR (Non- Af Amer) 48 L, BUN/Creatinine Ratio 27.5 H, Random Glucose 94, Calcium 9.0, Calcium Adj for Albumin 9.2, Total Bilirubin 1.0, AST 32, ALT 22, Alkaline P hosphatase 135, Total Protein 7.3, Albumin 3.3 L 09/23/20 06:20: WBC 10.0 D, RBC 4.26, Hgb 13.0, Hct 40.5, MCV 95.1, MCH 30.5, MCHC 32.1, RDW 16.4 H, Plt Count 146 L, MPV 10.6, Immature Gran % (Auto) 0.60 H, Immature Gran # (Auto) 0.06 H, Neutrophils % 76.5 H, Lymphocytes % 11.4 L, Monocytes % 10.4 H, Eosinophils % 1.0, Basophils % 0.1, Nucleated RBC % 0.0, Neutrophils # 7.6 H, Lymphocytes # 1.14 L, Monocytes # 1.0, Eosinophils # 0.1, Absolute Basophils 0.0 09/23/20 06:20: Sodium 135, Plasma Sodium 136, Potassium 3.8, Chloride 101, Carbon Dioxide 25.9, Anion Gap 11.9, BUN 26 H, Creatinine 1.01, Est GFR (Non-Af Amer) 59 L D, BUN/Creatinine Ratio 25.7 H, Random Glucose 140 H D, Calcium 8.6 09/24/20 06:10: WBC 7.3 D, RBC 3.71 L, Hgb 11.4 L, Hct 35.2 L, MCV 94.9, MCH 30.7, MCHC 32.4, RDW 16.3 H, Plt Count 140 L, MPV 10.9, Immature Gran % (Auto) 0.60 H, Immature Gran # (Auto) 0.04 H, Neutrophils % 72.0, Lymphocytes % 12.1 L, Monocytes % 12.0 H, Eosinophils % 3.2 H, Basophils % 0.1, Nucleated RBC % 0.0, Neutrophils # 5.2, Lymphocytes # 0.88 L, Monocytes # 0.9, Eosinophils # 0.2, Absolute Basophils 0.0 09/24/20 06:10: Sodium 135, Plasma Sodium 135, Potassium 3.9, Chloride 103, Carbon Dioxide 25.4, Anion Gap 10.5, BUN 20, Creatinine 0.98, Est GFR (Non-Af Amer) 61, BUN/Creatinine Ratio 20.4, Random Glucose 126 H, Calcium 8.1 Discharge Location: Home Disposition: [facility] Condition: Stable Discharge Activity: Weight bearing - As tolerated Discharge Diet: General/regular food Alf Therapy: Physical Therapy Additional Patient Instructions (free text): [facility] at discharge- nursing and PT. Fax facesheet, discharge summary, discharge instructions, and med list and call report. Prescriptions (Any new or edited meds): oxyCODONE HCL/ACETAMINOPHEN [Percocet 5 MG/325 MG] 1 tab PO Q4H PRN #42 tab PRN Reason: Moderate Pain (Pain Scale 4-6) Transmission Status: Sent to [facility] Rivaroxaban [Xarelto] 10 mg PO DAILY #39 tab Transmission Status: Pending to [facility] Complete Home Medications List: Complete Home Medication List: Albuterol Sulfate [Ventolin Hfa] 1 puff INHALATION Q4H PRN 09/21/20 Atorvastatin Calcium [Lipitor] 80 mg PO HS 09/21/20 Enalapril Maleate 5 mg PO DAILY 09/21/20 Hydroxychloroquine Sulfate [Plaquenil] 200 mg PO DAILY 09/21/20 Naloxone HCl [Narcan] 4 mg NS ONCE PRN 09/21/20 Pregabalin [Lyrica] 150 mg PO BID 09/21/20 oxyCODONE HCL/ACETAMINOPHEN [Percocet 10-325 mg Tablet] 2 ea PO TID PRN 09/21/20 Rivaroxaban [Xarelto] 10 mg PO DAILY #39 tab 09/25/20 oxyCODONE HCL/ACETAMINOPHEN [Percocet 5 MG/325 MG] 1 tab PO Q4H PRN #42 tab 09/25/20 Forms: Patient Portal Registration
--- NOTE | 2020-09-25 12:51 | PN ---
Subjective - Date and Time Seen Date: 09/25/20 Time: 12:50 Subjective Narrative: Subjective: Reports no concerns. Was able to walk and transfer with therapy. Pain is well-controlled. Voiding without any complications. Tolerating by mouth intake. Denies any nausea or vomiting. Denies calf pain. Slept well. Physical exam: Alert and oriented Right lower extremity: Palpable dorsalis pedis pulse. Sensation grossly intact to light touch. Dressings clean and dry. Able to flex and extend ankle and toes. No excessive drainage. Calf and thigh are soft and nontender. Assessment: Postop day 3 status post right hip cephalomedullary fixation. Plan: Continue with physical and occupational therapy weightbearing as tolerated. Continue with anticoagulation for 6 weeks. 24 hours postoperative prophylactic antibiotics. Pain control with goal to rely on oral medications. Continue bowel regimen. Will need 6 weeks with walker or assistive device to protect joint while ambulating during the recovery process. Okay to transfer at any point. I would like to see her back in 2 to 3 weeks. Keep the wound dry. Continue compression stocking on the surgical leg. Objective - Vitals Vitals: Last Vital Signs Temp 36.9 C 09/25/20 10:00 Pulse 102 H 09/25/20 10:39 Resp 20 09/25/20 10:00 BP 106/75 09/25/20 10:00 Pulse Ox 89 L 09/25/20 10:00 Cauti Physician Documentation - Urinary Catheter Management Urethral ([place]) Urethral Indwelling: No Date of Insertion: 09/21/20 Time of Insertion: 11:54 Date of Removal: 09/23/20 Time of Removal: 13:02 Assessment/Plan - Problems/Diagnosis (1) Intertrochanteric fracture of right femur Problem: Acute Qualifiers: Encounter type: subsequent encounter Fracture type: closed Fracture alignment: nondisplaced Fracture healing: with routine healing Qualified Code(s): S72.144D - Nondisplaced intertrochanteric fracture of right femur, subsequent encounter for closed fracture with routine healing
[2020-09-25 14:11] VITALS: BP 110/65
== END 2020-09-25 15:06 | disposition home health service (06) | DRG 480 ==
LOC: ER 10:11 → MS 12:28
PROVIDERS: ADMIT Internal Medicine; ATTEND Internal Medicine
DX: N18.30 Chronic kidney disease, stage 3 unspecified; M32.9 Systemic lupus erythematosus, unspecified; Z72.0 Tobacco use; M81.0 Age-related osteoporosis without current pathological fracture; S72.144A Nondisplaced intertrochanteric fracture of right femur, initial encounter for closed fracture; J96.01 Acute respiratory failure with hypoxia; I12.9 Hypertensive chronic kidney disease with stage 1 through stage 4 chronic kidney disease, or unspecified chronic kidney disease; J44.9 Chronic obstructive pulmonary disease, unspecified; W05.0XXA Fall from non-moving wheelchair, initial encounter